=== PATIENT | male | born 2000 | race Two or more races ===

== ENCOUNTER 2022-03-14 10:30 | Emergency (ER) | payer MEDICAID, OTHER ==
[~2022-03-14] VITALS: Ht 177.8 cm; Wt 86.2 kg
[2022-03-14 10:33] VITALS: BP 133/74
[2022-03-14] MEDS ORDERED: LIDOCAINE 1%HCL (LOCAL ANESTH) 10 ML MDV ONE (10:46)
[2022-03-14] MEDS ORDERED: LIDOCAINE 1% HCL (LOCAL ANESTH.) INJ 20ML MDV ID ONE (11:00)
[2022-03-14] MEDS ORDERED: CEPH500C PO (11:01)
== END 2022-03-14 11:08 | disposition home or self-care (01) ==
LOC: ER 10:30
DX: S01.21XA Laceration without foreign body of nose, initial encounter (principal); W18.09XA Striking against other object with subsequent fall, initial encounter; Y93.89 Activity, other specified; Y92.89 Other specified places as the place of occurrence of the external cause; Y99.8 Other external cause status
CPT/HCPCS: 12011; 99283; J2001